=== PATIENT | male | born 1955 | race Caucasian/White ===

== ENCOUNTER → 2020-06-14 | Outpatient (CLI) | payer MEDICARE | LOC: COL.LAB 08:00 | DX: U07.1 COVID-19 (principal) ==

== ENCOUNTER 2020-07-08 05:48 | Day surgery (SDC) | payer MEDICARE, OTHER ==
[~2020-07-08] VITALS: Ht 175.3 cm; Wt 102.4 kg
[2020-07-08] VITALS (7 sets, daily range): BP systolic 115–133; BP diastolic 74–86; PULSE 54–60; TEMP 98.4–98.6
[2020-07-08] MEDS ORDERED: FLOMAX 0.40.4 MG/CAP PO (06:37)
[2020-07-08] MEDS ORDERED: SYNTHROID0.088 MG/T PO (06:38)
--- NOTE | 2020-07-08 06:40 | NUR ---
TO JEREMY AT 0603 - CALL LIGHT IN REACH
--- NOTE | 2020-07-08 07:39 | NUR ---
PT RETURNED FROM THE ENDO PROCEDURE ROOM PER CART INTO BAY#1. PT ALERT AND ORIENTED.PT DENIES PAIN, NAUSEA OR DISCOMFORT. LUNGS CLEAR, HR WITH IRREGULARITIES. BOWEL SOUNDS PRESENT. WILL MONITOR
--- NOTE | 2020-07-08 10:45 | NUR ---
PT REQUESTED BLUEBERRY MUFFIN AND COFFEE. PT DENIES NAUSEA, VOMITING OR PAIN AT THIS TIME. WILL CONT TO MONITOR.
--- NOTE | 2020-07-08 10:47 | NUR ---
DR CRAMER WAS NOTIFIED OF THE PT IRREGULAR HEART RATE. ORDERED AN EKG. EKG WAS DONE PER RESPIRATORY. DR RIVERA WAS FAXED RESULTS PER DR WAY. REFER TO EKG IN CHART.
--- NOTE | 2020-07-08 10:53 | NUR ---
PT IS A/OX3. PT DENIES PAIN, NAUSEA OR DISCOMFORT. IV WAS DC'D TO RIGHT HAND. PT TOLERATED WELL. DISMISSAL INSTRUCTIONS GIVEN. PT DENIES QUESTIONS. PT WAS DISMISSED PER DR ORDERS TO HOME. PT WAS TAKEN PER WC TO PATIENT ENTRANCE TO FAMILY VEHICLE. ELISHA WAS DRIVING.
== END 2020-07-08 09:00 | disposition home or self-care (01) ==
LOC: SDCO 05:48
DX: K21.00 Gastro-esophageal reflux disease with esophagitis, without bleeding (principal); K22.2 Esophageal obstruction; K44.9 Diaphragmatic hernia without obstruction or gangrene; E03.9 Hypothyroidism, unspecified; Z87.891 Personal history of nicotine dependence; Z79.891 Long term (current) use of opiate analgesic; Z20.822 Contact with and (suspected) exposure to COVID-19
CPT/HCPCS: J2704; J7120

== ENCOUNTER 2020-08-19 06:58 | Day surgery (SDC) | payer MEDICARE, OTHER ==
[~2020-08-19] VITALS: Ht 175.3 cm; Wt 103.3 kg
[~2020-08-19 06:58] MED LIST: FLOMAX 0.40.4 MG/CAP PO; SYNTHROID0.088 MG/T PO
[2020-08-19 07:21] VITALS: BP 147/96; PULSE 57; TEMP 97.8
[2020-08-19] MEDS ORDERED: PROTONIX 40MG T40 MG PO (07:24)
[2020-08-19] MEDS ORDERED: VITAMIN D31000 I1 PO (07:25)
[2020-08-19] MEDS ORDERED: DESYREL 50MG50 MG PO (07:25)
[2020-08-19 08:42] VITALS: BP 126/88; PULSE 59; TEMP 97.8
--- NOTE | 2020-08-19 08:42 | NUR ---
Pt to bay 2 via cart from [facility]. Pt ambulates to recliner with stand by assistance. Warm blanket provided. Coffee and muffin given per pt request. Will continue to monitor. Call light within reach.
[2020-08-19 09:00] VITALS: BP 129/82; PULSE 52
--- NOTE | 2020-08-19 09:00 | NUR ---
Pt tolerating po food and fluids without diffiuclties. Denies needs. Call light within reach.
[2020-08-19 09:15] VITALS: BP 120/77; PULSE 57
--- NOTE | 2020-08-19 09:15 | NUR ---
IV site discontinued with all parts intact. Pt up to dress. Call light within reach.
--- NOTE | 2020-08-19 09:34 | NUR ---
Discharge instruction reviewed. Pt voices understanding. on way to clam picker pt. Call light within reach.
--- NOTE | 2020-08-19 09:38 | NUR ---
Pt escorted to private car via wheel chair. Pt accompanied home by his .
== END 2020-08-19 09:39 | disposition home or self-care (01) ==
LOC: SDCO 06:58
DX: K22.2 Esophageal obstruction (principal); K44.9 Diaphragmatic hernia without obstruction or gangrene; K21.9 Gastro-esophageal reflux disease without esophagitis; Z86.16 Personal history of COVID-19
CPT/HCPCS: C1726; J2704; J7030

== ENCOUNTER 2020-10-10 13:06 | Inpatient (IN) | payer MEDICARE, OTHER ==
[2020-10-10] VITALS (348 sets, daily range): BP systolic 98–117; BP diastolic 73–83; PULSE 112–153; TEMP 97.6–98.5; O2SAT 79–100
[~2020-10-10] VITALS: Ht 175.3 cm; Wt 95.8 kg
[~2020-10-10 13:06] MED LIST changes: +DESYREL 50MG50 MG PO; +PROTONIX 40MG T40 MG PO; +VITAMIN D31000 I1 PO
[2020-10-10] MEDS ORDERED: MOTRIN 800800 MG/TAB PO (14:35)
[2020-10-10] MEDS ORDERED: CLARITIN 1010 MG/TAB PO (14:35)
--- NOTE | 2020-10-10 15:58 | NUR ---
Pt arrived to medical unit room 309 from [facility] around 1500. Report received from ED nurse at [facility]. Pt oriented to room, admission assessment complete and med rec updated. 20 gauge IV started to right wrist. A&Ox4. Lungs CTA. Heart rhythm irregular and rate tachy upon auscultation. EKG done and shows Atrial flutter w/RVR, hospitalist notified. Orders to transfer pt to ICU bed 7. Attempted to call report to Danika HECK at this time who states she will call back in 5 minutes. Continuing to monitor.
[2020-10-10 16:10] LABS: BASO % 0.2 % (0.0-2.0); EOS # 0.1 (0.0-0.7); EOS % 1.2 % (0-4.0); GRAN # 6.6 (1.4-6.5); GRAN % 70.3 % (42.2-75.2); HEMATOCRIT 39.5 % (42.0-52.0); HEMOGLOBIN 12.9 g/dl (13.5-18.0); LYMPH # 1.7 (1.2-3.4); LYMPH % 18.2 % (20.0-51.0); MEAN CELL VOLUME 88 fl (80.0-100.0); MEAN CORPUSCULAR HEMOGLOBIN 29 pg (27.0-31.0); MEAN CORPUSCULAR HGB CONC 33 g/dl (33.0-37.0); MEAN PLATELET VOLUME 11.5 fl (7.4-10.4); MONO # 0.9 (0.1-0.6); MONO % 9.9 % (1.7-9.3); PLATELET COUNT 194 K/mm3 (130-400); RED BLOOD COUNT 4.51 M/mm3 (4.20-5.60); REDCELL DISTRIBUTION WIDTH-CV 13.4 % (11.5-14.5)
[2020-10-10 16:22] LABS: ALBUMIN 3.7 gm/dL (3.5-5.0); BILIRUBIN,TOTAL 0.6 mg/dL (0.0-1.0); CALCIUM 8.6 mg/dL (8.4-10.2); CREATININE, serum 0.89 (0.66-1.25); POTASSIUM 3.8 mmol/L (3.4-5.0); TOTAL PROTEIN 6.5 gm/dL (6.4-8.2)
--- NOTE | 2020-10-10 16:29 | NUR ---
RECEIVED REPORT FROM MARIA R SHARP ON MEDICAL AWAITING ARRIVAL OF PT TO ICU 7.
[2020-10-10 16:37] LABS: TROPONIN-I 0.117 ng/mL (0.000-0.035)
--- NOTE | 2020-10-10 16:45 | NUR ---
PT ARRIVES TO ICU 7 VIA WC ON RA. PT AMBULATES SELF TO ICU BED. PLACED ON BEDSIDE CONTINUOUS MONITOR. CALL LIGHT WITHIN REACH. AT BEDSIDE. SEE GTT FLOWSHEET. PT DENIES CP BUT DOES STATE SOME PRESSURE IN HIS CHEST CURRENTLY BUT NOT UNBEARABLE.
--- NOTE | 2020-10-10 16:52 | NUR ---
Report given to MACHINE ASSEMBLER SUPERVISOR Danika. Pt taken by wheelchair to ICU bed 7.
--- NOTE | 2020-10-10 19:30 | NUR ---
Received report from MARIA R Nieto. All medications verified and all questions answered. Patient resting in bed watching TV with present at bedside. VSS. No concerns or complaints noted at this time from patient. Will resume care at this time.
[2020-10-10 19:37] LABS: INR 1.1 (0.8-3.0); PROTHROMBIN TIME 12.2 SECONDS (9.7-12.8)
[2020-10-10 19:39] LABS: PARTIAL THROMBOPLASTIN TIME 35.3 SECONDS (26.0-37.0)
[2020-10-11] VITALS (447 sets, daily range): BP systolic 97–125; BP diastolic 69–87; PULSE 55–115; TEMP 98–98.4; O2SAT 70–100
[2020-10-11 05:26] LABS: BASO % 0.2 % (0.0-2.0); EOS # 0.2 (0.0-0.7); EOS % 1.9 % (0-4.0); GRAN # 5.8 (1.4-6.5); GRAN % 70.4 % (42.2-75.2); HEMATOCRIT 40.9 % (42.0-52.0); HEMOGLOBIN 13.7 g/dl (13.5-18.0); LYMPH # 1.6 (1.2-3.4); LYMPH % 18.8 % (20.0-51.0); MEAN CELL VOLUME 88 fl (80.0-100.0); MEAN CORPUSCULAR HEMOGLOBIN 30 pg (27.0-31.0); MEAN CORPUSCULAR HGB CONC 34 g/dl (33.0-37.0); MEAN PLATELET VOLUME 12.5 fl (7.4-10.4); MONO # 0.7 (0.1-0.6); MONO % 8.5 % (1.7-9.3); PLATELET COUNT 186 K/mm3 (130-400); RED BLOOD COUNT 4.65 M/mm3 (4.20-5.60); REDCELL DISTRIBUTION WIDTH-CV 13.7 % (11.5-14.5)
[2020-10-11 05:42] LABS: CALCIUM 8.4 mg/dL (8.4-10.2); CHOLESTEROL RISK RATIO 4.1; CREATININE, serum 0.72 (0.66-1.25); POTASSIUM 3.7 mmol/L (3.4-5.0)
[2020-10-11 05:54] LABS: TROPONIN-I 0.101 ng/mL (0.000-0.035)
--- NOTE | 2020-10-11 07:10 | NUR ---
RECEIVED REPORT FROM MARIA R GOMEZ. PT RESTING EASILY ON RA. VSS. CALL LIGHT AND URINAL WITHIN REACH. SEE GTT FLOWSHEET.
--- NOTE | 2020-10-11 09:40 | NUR ---
NOTIFIED VIDAL RN WITH DR RIVERA OF PT'S HR 60-90 AND CARDIZEM GTT AT 5MG/HR. PROVIDER REQUESTS EKG AND WILL BE BY TO SEE PT SHOURTLY TO DECIDE POC. PT AND UPDATED.
--- NOTE | 2020-10-11 09:49 | NUR ---
Initial visit; Patient thanked Plastics Repairer for looking in on him and offering God's blessings.
--- NOTE | 2020-10-11 14:55 | NUR ---
Internet Marketing Manager attended clinicals rounds with the team. The patient's , Lai was present. Following rounds, SW completed intake. The patient lives independently with his Lia in [place]. The patient denies DME use. The patient does not have advanced directives but was interested in DPOA-HC form. Form provided. The patient plans to return home at discharge with no concerns about doing so. *Discharge disposition at this time: Home with spouse
--- NOTE | 2020-10-11 15:00 | NUR ---
PT'S REQUESTS A LETTER FOR PATIENT'S HOSPITALIZATION R/T FLIGHTS THEY HAVE ON THIS COMING SATURDAY. SPOKE TO ADOLPH WITH SOCIAL WORK ABOUT HOW TO OBTAIN. SHE STATES TO ASK DR RIVERA TO USE LETTERHEAD IN G DRIVE TO WRITE LETTER. SPOKE TO VIDAL RN WITH DR RIVERA AND SHE STATES THEY DO NOT HAVE ACCESS AND TO ASK DR KHAN IF HE WOULD BE ABLE TO WRITE THE LETTER. DR RIVERA ALSO STATES PT IS ABLE TO TRANSFER TO THE MEDICAL FLOOR FROM HIS STANDPOINT. PT AND UPDATED ON STATUS OF LETTER.
--- NOTE | 2020-10-11 15:59 | NUR ---
NOTIFIED DR KHAN OF [facility] AND PER DR RIVERA CAN TRANSFER TO THE [facility]. ALSO NOTIFIED PHYSICIAN OF PT'S 'S REQUEST OF A NOTE WITH LETTERHEAD FOR FLIGHT CANCELLATION SATURDAY DUE TO PATIENT BEING IN HOSPITAL.
--- NOTE | 2020-10-11 17:32 | NUR ---
ATTEMPTED TO CALL REPORT TO MARIA R PRIETO.
--- NOTE | 2020-10-11 17:45 | NUR ---
REPORT GIVEN TO MARIA R PRIETO. PT TRASNFERRED TO 317 VIA WC ON RA. ALL PERSONAL BELONGINGS SENT WITH PT. AT BEDSIDE.
--- NOTE | 2020-10-11 18:05 | NUR ---
PT ARRIVED TO FLOOR, ASSESSMENT PERFORMED, EDUCATED ON TWO NEW MEDICATIONS, NO ALLERGIES, PT INDEPENDENT IN ROOM, AT BEDSIDE. PT REQUIRES A LETTER FROM PHYSICIAN PROVING HE IS IN THE HOSPITAL TO OBTAIN RETURN FOR FLIGHT ON SATURDAY. TAKING HOME MEDICATIONS IN THE ROOM. PT ON TELE, NO OTHER NEEDS.
--- NOTE | 2020-10-11 20:00 | NUR ---
Assessment complete. Patient is alert and oriented with no complaints of pain. HR is 63 with regular rhythm. No edema is observed. Vitals stable. Sotalol is administered and EKG order 2 hours post is relayed to residential appraiser. No new concerns, will continue to monitor.
[2020-10-12 04:38] VITALS: BP 101/65; PULSE 56; TEMP 97.6
--- NOTE | 2020-10-12 07:46 | NUR ---
REPORT FROM CHARLES HECK. PT RESTING IN BED DURING REPORT. PT IS A/O X3 AND INDEPENDENT.
[2020-10-12 07:57] VITALS: BP 129/78; PULSE 58; TEMP 98.5
[2020-10-12 11:23] VITALS: BP 104/60; PULSE 53; TEMP 98.3
[2020-10-12 16:33] VITALS: BP 102/69; PULSE 50; TEMP 98
[2020-10-12 19:59] VITALS: BP 117/71; PULSE 52; TEMP 98.4
--- NOTE | 2020-10-12 20:00 | NUR ---
Assessment complete. Patient's HR is 54 bpm at this time; Dr. Buenrostro notified and orders to administer 1/2 of Sotalol tonight and insert order for 40 mg Sotalol BID instead of 80 mg. Patient has no complaints of pain, SOA, etc. Pt independent in room. Call light in reach, will continue to monitor.
[2020-10-13 00:38] VITALS: BP 101/55; PULSE 56; TEMP 97.8
[2020-10-13 03:57] VITALS: BP 118/72; PULSE 50; TEMP 97.9
[2020-10-13 06:57] LABS: BASO % 0.3 % (0.0-2.0); EOS # 0.2 (0.0-0.7); EOS % 2.5 % (0-4.0); GRAN # 4.3 (1.4-6.5); GRAN % 62.4 % (42.2-75.2); HEMATOCRIT 37.8 % (42.0-52.0); HEMOGLOBIN 12.4 g/dl (13.5-18.0); LYMPH # 1.7 (1.2-3.4); LYMPH % 24.5 % (20.0-51.0); MEAN CELL VOLUME 89 fl (80.0-100.0); MEAN CORPUSCULAR HEMOGLOBIN 29 pg (27.0-31.0); MEAN CORPUSCULAR HGB CONC 33 g/dl (33.0-37.0); MEAN PLATELET VOLUME 12.3 fl (7.4-10.4); MONO # 0.7 (0.1-0.6); MONO % 9.7 % (1.7-9.3); PLATELET COUNT 197 K/mm3 (130-400); RED BLOOD COUNT 4.27 M/mm3 (4.20-5.60); REDCELL DISTRIBUTION WIDTH-CV 13.5 % (11.5-14.5)
[2020-10-13 07:02] LABS: INR 1.1 (0.8-3.0); PROTHROMBIN TIME 12.1 SECONDS (9.7-12.8)
[2020-10-13 07:16] LABS: CALCIUM 8.8 mg/dL (8.4-10.2); MAGNESIUM 1.9 mg/dL (1.6-2.3); POTASSIUM 4.1 mmol/L (3.4-5.0)
[2020-10-13 07:32] VITALS: BP 131/79; PULSE 50; TEMP 98.7
[2020-10-13 07:32] LABS: CREATININE, serum 0.96 (0.66-1.25)
[2020-10-13] MEDS ORDERED: ELIQUIS 5MG PO (07:58)
[2020-10-13] MEDS ORDERED: BETAPACE 80MG80 MG PO (07:59)
--- NOTE | 2020-10-13 08:55 | NUR ---
Assessment completed, alert/oriented, vital signs stable/ Bradycardic, denies pain or discomfort, SB on tele/ denies any dizziness or feeling lightheaded, he has been up ambulating and doing well, Sotalol dosing was decreased yesterday, Qtc 423/ dose given, he is sitting up in his chair and has eaten breakfat, denies other needs
--- NOTE | 2020-10-13 09:41 | NUR ---
Follow-up visit; Patient thanked Flap Presser for looking in on him again and wishing him well.
--- NOTE | 2020-10-13 09:46 | NUR ---
SW attended clinical rounds. The patient is to tentatively d/c back home with his today, 10/13. SW presented and read the IM form outloud to him. The patient verbalized understanding and signed the form. SW provided him with a copy. No additional needs at this time.
[2020-10-13 11:34] VITALS: BP 123/71; PULSE 55; TEMP 98
--- NOTE | 2020-10-13 15:43 | NUR ---
Discharge orders discussed with the patient and his , instructed to follow up with Cardiolgoy as scheduled, instructed to take meds as prescribed, scripts for Sotalol and Eliquis were sent to [facility] for him, IV and tele removed, ambulatory and TILE DECORATOR escorted them out the door
== END 2020-10-13 15:46 | disposition home or self-care (01) | DRG 281 ==
LOC: MEDICAL 14:45 → ICU 16:22 → MEDICAL 10-11 18:01
PROVIDERS: Physician Assistant; ADMIT Student in an Organized Health Care Education/Training Program
PROC: 5A2204Z Restoration of Cardiac Rhythm, Single (ICD-10-PCS; principal; 2020-10-10)
DX: I48.92 Unspecified atrial flutter (principal); I21.A1 Myocardial infarction type 2; E87.1 Hypo-osmolality and hyponatremia; E03.9 Hypothyroidism, unspecified; N40.0 Benign prostatic hyperplasia without lower urinary tract symptoms; Z85.828 Personal history of other malignant neoplasm of skin; K21.9 Gastro-esophageal reflux disease without esophagitis; G47.00 Insomnia, unspecified; Z87.891 Personal history of nicotine dependence
CPT/HCPCS: 99223-AI; 99233-AI; 99239; J1650; J7030